=== PATIENT | female | born 1990 | race Two or more races ===

== ENCOUNTER 2018-06-29 14:44 | Emergency (ER) | payer SELFPAY ==
[~2018-06-29] VITALS: Ht 167.6 cm; Wt 101.3 kg
[~2018-06-29 14:44] MED LIST: CHROMAGEN,1 CAPSULE PO; CIPRO500 MG PO; COUGH & COLD S237 ML; DOXYCYCLINE HY100 MG PO; FLEXERIL10 MG PO; HEADACHE FORMU1 EACH; MOTRIN600 MG PO; MOTRIN800 MG PO; NAPROSYN500 MG PO; NOHOMEMEDS; PERCOCET 5/31 TABLET PO
[2018-06-29 16:12] LABS: HEMATOCRIT 40.2 % (36.0-46.0); HEMOGLOBIN 13.3 G/DL (11.9-15.5); MCH 29.7 PG (29.0-34.0); MCHC 33.1 G/DL (30.0-36.0); MCV 89.7 FL (83-99); PLATELET COUNT 243 K/uL (156-360); RBC DIS.WIDTH-CV 12.4 % (11.8-14.6); RBC DIS.WIDTH-SD 40.9 % (39-53); RED BLOOD COUNT 4.48 M/uL (3.80-5.20); WHITE BLOOD COUNT 8.3 K/uL (4.1-10.2)
[2018-06-29 16:21] LABS: CHLORIDE 108 mEq/L (99-109); POTASSIUM 4.2 mEq/L (3.7-5.4); SODIUM 141 mEq/L (136-147)
[2018-06-29 16:22] LABS: GLUCOSE 80 mg/dL (70-99)
[2018-06-29 16:26] LABS: CREATININE 0.8 mg/dL (0.6-1.3); GFR ESTIMATE (CALCULATED) > 59 mL/min/
[2018-06-29 16:27] LABS: UREA NITROGEN (BUN) 9 mg/dL (9-23)
[2018-06-29 16:38] LABS: QUANTITATIVE HCG < 4.0 MIU/ML
[2018-06-29 17:28] VITALS: BP 96/66
[2018-06-30 09:53] LABS: ANTI-HEPATITIS B CORE (IGM) Nonreactive; HIV-1/2 AB/AG COMBO Nonreactive
== END 2018-06-29 17:28 | disposition home or self-care (01) ==
LOC: EME 14:44
PROVIDERS: Physician Assistant
DX: Z77.21 Contact with and (suspected) exposure to potentially hazardous body fluids (principal); S40.871A Other superficial bite of right upper arm, initial encounter; Y04.1XXA Assault by human bite, initial encounter; S16.1XXA Strain of muscle, fascia and tendon at neck level, initial encounter; Y99.0 Civilian activity done for income or pay; J45.909 Unspecified asthma, uncomplicated
CPT/HCPCS: 73080; 80048; 84702; 85027; 86705; 87389; 99281; 99283